=== PATIENT | female | born 1940 | race Caucasian/White ===

== ENCOUNTER 2020-02-28 15:59 | Outpatient (REF) | payer MEDICARE, MEDICAID, SELFPAY ==
--- NOTE | 2020-02-28 14:35 | ORMUBX_PTH ---
PATIENT: Kayla Carpio LOC: [facility] U#:[id number] AGE/SX: 80/F ROOM: RE02/28/[address]: Joseph Bhatt MD : 1940 BED: DIS: 02/28/2020 SPEC #: [id number] RECD: 02/29/20 11:43 STATUS: BABAK REQ #: [id number] TIAGO: 02/28/20 14:[address]: Joseph Bhatt DEPT: Surgical Specimen RECD BY: Dashawn Gupta ENTERED: 02/29/20 11:45 SP TYPE: ORMUBX OTHR DR: Roverto Engel Tissues: 1 - MUCOSA, NOS Procedures: GROSS AND MICRO LEVEL 4 IMMUNOPEROXIDASE STAIN Comments: [id number]
== END 2020-02-28 16:19 ==
LOC: LBN 15:59
PROVIDERS: PCP Family Medicine; Visit Provider Otolaryngology
DX: D37.09 Neoplasm of uncertain behavior of other specified sites of the oral cavity (principal)
CPT/HCPCS: 88305; 88361

== ENCOUNTER 2021-02-26 14:19 | Outpatient (REF) | payer MEDICARE, MEDICAID, SELFPAY ==
--- NOTE | 2021-02-26 13:35 | ORMUBX_PTH ---
PATIENT: Kayla Carpio LOC: [facility] U#:[id number] AGE/SX: 81/F ROOM: RE02/26/[address]: Joseph Bhatt MD : 1940 BED: DIS: 02/26/2021 SPEC #: [id number] RECD: 02/27/21 15:22 STATUS: BABAK RENakia #: [id number] TIAGO: 02/26/21 13:[address]: Joseph Bhatt DEPT: Surgical Specimen RECD BY: Daxa York ENTERED: 02/27/21 15:23 SP TYPE: ORMUBX OTHR DR: Roverto Engel Tissues: 1 - MUCOSA, NOS Procedures: GROSS AND MICRO LEVEL 4 IMMUNOPEROXIDASE STAIN SPECIAL STAIN 1 Comments: [id number]
== END 2021-02-26 14:20 | disposition home or self-care (01) ==
LOC: NCHCN 14:19
PROVIDERS: PCP Family Medicine; Visit Provider Otolaryngology
DX: K13.79 Other lesions of oral mucosa (principal); K13.29 Other disturbances of oral epithelium, including tongue
CPT/HCPCS: 88305; 88312; 88361